=== PATIENT | female | born 1965 | race Caucasian/White ===

== ENCOUNTER 2019-10-24 08:53 | Emergency (ER) | payer BC ==
[2019-10-24] MEDS ORDERED: PROMETHAZINE 25 MG/ML VIAL ONE (09:17)
[2019-10-24] MEDS ORDERED: NA CHLORIDE 0.9% 1,000 ML ONE ×2 (09:17→11:25)
[2019-10-24] MEDS ORDERED: PANTOPRAZOLE 40 MG INJ ONE (09:17)
[2019-10-24 09:28] LABS: Absolute Lymphocytes (CBC) 1.2 K/uL (0.7-4.9); Basophils % 0.4 % (0-1.3); Hematocrit 45.4 % (36.0-45.0); Lymphocytes % 16.6 % (15.3-44.8); MPV 8.2 fL (7.6-11.3); RBC Red Blood Cell Count 4.76 M/uL (3.86-4.86)
[2019-10-24 09:40] LABS: Albumin 3.8 g/dL (3.4-5.0); Bilirubin Direct 0.2 mg/dL (0-0.2); Bilirubin Total 0.7 mg/dL (0.2-1.0); Potassium 4.1 mmol/L (3.5-5.1)
[2019-10-24 11:54] LABS: Urine Bacteria <20 /HPF (<20); Urine Culture Reflex Order NOT NEEDED; Urine RBC <5 /HPF (NONE SEEN)
--- NOTE | 2019-10-24 12:10 | ER ---
Nurse's Notes [facility] Name: Gala Chawla Age: 54 yrs Sex: Female : 1965 Arrival Date: 10/24/2019 Time: 08:55 Bed 13 Private MD: Diagnosis: Diarrhea, unspecified Presentation: 10/24 09:00 Presenting complaint: Patient states: Diarrhea x 3 days. Pt reports she is having 2-3 ss watery BMs/ hour. Transition of care: patient was not received from another setting of care. Onset of symptoms was October 20, 2019. Risk Assessment: Do you want to hurt yourself or someone else? Patient reports no desire to harm self or others. Initial Sepsis Screen: Does the patient have a suspected source of infection? No. Patient's initial sepsis screen is negative. Care prior to arrival: None. 09:00 Method Of Arrival: Ambulatory ss 09:00 Acuity: BEATA 3 ss 09:00 Initial Sepsis Screen: Does the patient meet any 2 criteria? No. Patient's initial rb1 sepsis screen is negative. Historical: - Allergies: 09:00 No Known Allergies; rb1 - Home Meds: 09:00 Projesterone [Active]; rb1 - PMHx: 09:00 hormone replacement; rb1 - PSHx: 09:00 None; rb1 - Immunization history:: Adult Immunizations up to date. - Social history:: Smoking status: Patient/guardian denies using tobacco. - Ebola Screening: : Patient denies exposure to infectious person Patient denies travel to an Ebola-affected area in the 21 days before illness onset. Screenin:00 Abuse screen: Denies threats or abuse. Nutritional screening: Has had N/V for 3 or more rb1 days. Tuberculosis screening: No symptoms or risk factors identified. Fall Risk None identified. Assessment: 09:00 General: Appears uncomfortable, Behavior is calm, cooperative, Denies fever. Pain: rb1 Complains of pain in right lower quadrant and left lower quadrant Pain currently is 6 out of 10 on a pain scale. Neuro: Level of Consciousness is awake, alert, obeys commands, Oriented to person, place, time, situation. 09:00 Cardiovascular: Capillary refill < 3 seconds is brisk in bilateral fingers. rb1 Respiratory: Airway is patent Respiratory effort is even, unlabored, Respiratory pattern is regular, symmetrical. GI: Reports diarrhea, nausea, vomiting, since x 3 days. : No signs and/or symptoms were reported regarding the genitourinary system. Derm: Skin is pink, warm \T\ dry. 10:00 Reassessment: Patient appears in no apparent distress at this time. No changes from rb1 previously documented assessment. 11:00 Reassessment: Patient appears in no apparent distress at this time. Patient and/or ca1 family updated on plan of care and expected duration. Pain level reassessed. Patient is alert, oriented x 3, equal unlabored respirations, skin warm/dry/pink. Patient states feeling better. 12:23 Reassessment: Patient appears in no apparent distress at this time. Patient is alert, ca1 oriented x 3, equal unlabored respirations, skin warm/dry/pink. Patient is alert/active/playful, equal unlabored respirations, skin warm/dry/pink. Pending completion of fluids. To be discharged once done. Vital Signs: 09:00 BP 122 / 80; Pulse 88; Resp 17; Temp 97.8(O); Pulse Ox 100% ; Weight 56.7 kg (R); rb1 Height 5 ft. 5 in. (165.10 cm); Pain 6/10; 10:00 BP 112 / 77; Pulse 78; Resp 16; Pulse Ox 100% on R/A; rb1 11:33 BP 153 / 73; Pulse 70; Resp 17; Temp 98.9(TE); Pulse Ox 97% on R/A; mh5 12:23 BP 114 / 75; Pulse 79; Resp 17 S; Pulse Ox 100% ; ca1 09:00 Body Mass Index 20.80 (56.70 kg, 165.10 cm) [facility] ED Course: 08:55 Patient arrived in ED. as 08:56 Elle Cadena FNP-C is PHCP. snw 08:56 Darrian Devi MD is Attending Physician. snw 08:56 Kell Juan, PRINCESS is Primary Nurse. rb1 09:00 Arm band placed on left wrist. ss 09:00 Patient has correct armband on for positive identification. Bed in low position. Call rb1 light in reach. Side rails up X 1. Pulse ox on. NIBP on. 09:11 Triage completed. ss 09:20 Initial lab(s) drawn, by me, sent to lab. Inserted saline lock: 20 gauge in right 5 antecubital area, using aseptic technique. Blood collected. 09:21 Adult w/ patient. Warm blanket given. [facility] 09:21 Basic Metabolic Panel Sent. 5 09:21 CBC with Diff Sent. 5 09:22 Creatinine for Radiology Sent. 5 09:22 Hepatic Function Sent. 5 09:[address] [facility] 09:54 Inserted saline lock: 22 gauge in left antecubital area, using aseptic technique. rb1 09:55 IV discontinued, intact, bleeding controlled, No redness/swelling at site. Pressure rb1 dressing applied, 20 G R AC. 10:04 Urine Culture Sent. 5 10:04 Urine Microscopic Only Sent. 5 12:58 IV discontinued, intact, bleeding controlled, No redness/swelling at site. Pressure ca1 dressing applied. 12:59 No provider procedures requiring assistance completed. ca1 Administered Medications: 09:25 Drug: NS 0.9% 1000 ml Route: IV; Rate: 1 bolus; Site: right antecubital; rb1 11:27 Follow up: Response: No adverse reaction; IV Intake: 1000ml ca1 09:25 Drug: Phenergan 6.25 mg Route: IVP; Site: right antecubital; rb1 11:27 Follow up: Response: No adverse reaction; Pain is decreased ca1 09:25 Drug: ProTONIX 40 mg Route: IVP; Site: right antecubital; rb1 11:27 Follow up: Response: No adverse reaction; Nausea is decreased ca1 11:25 Drug: NS 0.9% 1000 ml Route: IV; Rate: 1 bolus; Site: left antecubital; ca1 12:59 Follow up: Response: No adverse reaction; IV Status: Completed infusion; IV Intake: ca1 1000ml 12:22 Drug: Cipro 500 mg Route: PO; ca1 13:00 Follow up: Response: No adverse reaction ca1 Intake: 11:27 IV: 1000ml; Total: 1000ml. ca1 12:59 IV: 1000ml; Total: 2000ml. ca1 Outcome: 12:09 Discharge ordered by . darío 12:58 Discharged to home ambulatory, with significant other. ca1 12:58 Condition: stable 12:58 Discharge instructions given to patient, Instructed on discharge instructions, follow up and referral plans. medication usage, Demonstrated understanding of instructions, follow-up care, medications, Prescriptions given X 2. 13:00 Patient left the ED. ca1 Signatures: Elle Cadena, SUPREME COURT JUSTICE-C SUPREME COURT JUSTICE-Csnw Maribel James Shelby RN RN Kell Juan RN RN rb1 Sol James [facility] Narda Vital RN RN ca1 Corrections: (The following items were deleted from the chart) 09:13 09:00 GI: Reports diarrhea, nausea, since x 3 days rb1 rb1
--- NOTE | 2019-10-24 12:10 | EDPHYS ---
Physician Documentation [facility] Name: Gala Chawla Age: 54 yrs Sex: Female : 1965 Arrival Date: 10/24/2019 Time: 08:55 Bed 13 Private MD: ED Physician Darrian Devi HPI: 10/24 12:07 This 54 yrs old Female presents to ER via Ambulatory with complaints of snw Diarrhea, Weakness. 12:07 The patient presents to the emergency department with diarrhea, that is continuous. snw Onset: The symptoms/episode began/occurred 4 day(s) ago, and became persistent. Possible causes: unknown. The symptoms are aggravated by movement, food . Associated signs and symptoms: Pertinent positives: abdominal pain, Pertinent negatives: GI bleeding. Severity of symptoms: At their worst the symptoms were moderate in the emergency department the symptoms are unchanged. The patient has not experienced similar symptoms in the past. It is unknown whether or not the patient has recently seen a physician. from [place]. Historical: - Allergies: 09:00 No Known Allergies; rb1 - Home Meds: 09:00 Projesterone [Active]; rb1 - PMHx: 09:00 hormone replacement; rb1 - PSHx: 09:00 None; rb1 - Immunization history:: Adult Immunizations up to date. - Social history:: Smoking status: Patient/guardian denies using tobacco. - Ebola Screening: : Patient denies exposure to infectious person Patient denies travel to an Ebola-affected area in the 21 days before illness onset. ROS: 09:23 Constitutional: Negative for fever, chills, and weight loss, Eyes: Negative for injury, snw pain, redness, and discharge, ENT: Negative for injury, pain, and discharge, Neck: Negative for injury, pain, and swelling, Cardiovascular: Negative for chest pain, palpitations, and edema, Respiratory: Negative for shortness of breath, cough, wheezing, and pleuritic chest pain, Back: Negative for injury and pain, : Negative for injury, bleeding, discharge, and swelling, MS/Extremity: Negative for injury and deformity, Skin: Negative for injury, rash, and discoloration, Neuro: Negative for headache, weakness, numbness, tingling, and seizure, Psych: Negative for depression, anxiety, suicide ideation, homicidal ideation, and hallucinations. 09:23 Abdomen/GI: Positive for nausea, diarrhea. Exam: 09:21 Constitutional: This is a well developed, well nourished patient who is awake, alert, snw and in no acute distress. Head/Face: Normocephalic, atraumatic. Eyes: Pupils equal round and reactive to light, extra-ocular motions intact. Lids and lashes normal. Conjunctiva and sclera are non-icteric and not injected. Cornea within normal limits. Periorbital areas with no swelling, redness, or edema. ENT: Nares patent. No nasal discharge, no septal abnormalities noted. Tympanic membranes are normal and external auditory canals are clear. Oropharynx with no redness, swelling, or masses, exudates, or evidence of obstruction, uvula midline. Mucous membranes moist. Neck: Trachea midline, no thyromegaly or masses palpated, and no cervical lymphadenopathy. Supple, full range of motion without nuchal rigidity, or vertebral point tenderness. No Meningismus. Chest/axilla: Normal chest wall appearance and motion. Nontender with no deformity. No lesions are appreciated. Cardiovascular: Regular rate and rhythm with a normal S1 and S2. No gallops, murmurs, or rubs. Normal PMI, no JVD. No pulse deficits. Respiratory: Lungs have equal breath sounds bilaterally, clear to auscultation and percussion. No rales, rhonchi or wheezes noted. No increased work of breathing, no retractions or nasal flaring. Back: No spinal tenderness. No costovertebral tenderness. Full range of motion. Skin: Warm, dry with normal turgor. Normal color with no rashes, no lesions, and no evidence of cellulitis. MS/ Extremity: Pulses equal, no cyanosis. Neurovascular intact. Full, normal range of motion. Neuro: Awake and alert, GCS 15, oriented to person, place, time, and situation. Cranial nerves II-XII grossly intact. Motor strength 5/5 in all extremities. Sensory grossly intact. Cerebellar exam normal. Normal gait. 09:21 Abdomen/GI: Inspection: abdomen appears normal, Bowel sounds: hyperactive, Palpation: mild abdominal tenderness, in the right lower quadrant and left lower quadrant. 09:21 Psych: Behavior/mood is anxious, Affect is animated, Judgement / Insight is normal. Vital Signs: 09:00 BP 122 / 80; Pulse 88; Resp 17; Temp 97.8(O); Pulse Ox 100% ; Weight 56.7 kg (R); rb1 Height 5 ft. 5 in. (165.10 cm); Pain 6/10; 10:00 BP 112 / 77; Pulse 78; Resp 16; Pulse Ox 100% on R/A; rb1 11:33 BP 153 / 73; Pulse 70; Resp 17; Temp 98.9(TE); Pulse Ox 97% on R/A; mh5 12:23 BP 114 / 75; Pulse 79; Resp 17 S; Pulse Ox 100% ; ca1 09:00 Body Mass Index 20.80 (56.70 kg, 165.10 cm) rb1 MDM: 08:56 Patient medically screened. snw 12:08 Data reviewed: vital signs, nurses notes. Data interpreted: Pulse oximetry: on room air snw is 97 %. Interpretation: normal. Counseling: I had a detailed discussion with the patient and/or guardian regarding: the historical points, exam findings, and any diagnostic results supporting the discharge/admit diagnosis, lab results, the need for outpatient follow up, to return to the emergency department if symptoms worsen or persist or if there are any questions or concerns that arise at home. Response to treatment: the patient's symptoms have markedly improved after treatment. Special discussion: Based on the patient's Hx, exam, and Dx evaluation, there is no indication for emergent surgery or inpatient Tx. It is understood by the patient/guardian that if the Sx's persist or worsen they need to return immediately for re-evaluation. Based on the history and exam findings, there is no indication for further emergent testing or inpatient evaluation. I discussed with the patient/guardian the need to see the primary care provider for further evaluation of the symptoms. 10/24 09:05 Order name: Basic Metabolic Panel; Complete Time: 09:44 snw 10/24 09:05 Order name: CBC with Diff; Complete Time: 09:36 snw 10/24 09:05 Order name: Creatinine for Radiology; Complete Time: 09:40 snw 12 09:05 Order name: Hepatic Function; Complete Time: 09:44 snw 12 09:05 Order name: Lipase; Complete Time: 09:44 snw 12 09:05 Order name: Stool Culture snw 10/24 09:05 Order name: Occult Blood snw 12/19 09:05 Order name: Fecal Leukocyte Stain [facility] 10/24 09:05 Order name: Urine Culture [facility] 10/24 09:05 Order name: Urine Microscopic Only; Complete Time: 11:57 [facility] 10/24 11:07 Order name: Urine Dipstick--Ancillary (enter results) 10/24 11:07 Order name: Urine --Ancillary (enter results) 10/24 09:05 Order name: IV Saline Lock; Complete Time: 09:22 snw 10/24 09:05 Order name: Labs collected and sent; Complete Time: : snw 10/24 09:05 Order name: Urine Dipstick-Ancillary (obtain specimen); Complete Time: 10:04 snw Administered Medications: 09:25 Drug: NS 0.9% 1000 ml Route: IV; Rate: 1 bolus; Site: right antecubital; rb1 11:27 Follow up: Response: No adverse reaction; IV Intake: 1000ml ca1 09:25 Drug: Phenergan 6.25 mg Route: IVP; Site: right antecubital; rb1 11:27 Follow up: Response: No adverse reaction; Pain is decreased ca1 09:25 Drug: ProTONIX 40 mg Route: IVP; Site: right antecubital; rb1 11:27 Follow up: Response: No adverse reaction; Nausea is decreased ca1 11:25 Drug: NS 0.9% 1000 ml Route: IV; Rate: 1 bolus; Site: left antecubital; ca1 12:59 Follow up: Response: No adverse reaction; IV Status: Completed infusion; IV Intake: ca1 1000ml 12:22 Drug: Cipro 500 mg Route: PO; ca1 13:00 Follow up: Response: No adverse reaction ca1 Disposition: 16:25 Co-signature as Attending Physician, Darrian Devi MD. rn Disposition: 10/24/19 12:09 Discharged to Home. Impression: Diarrhea, unspecified. - Condition is Stable. - Discharge Instructions: Food Choices to Help Relieve Diarrhea, Adult, Diarrhea, Adult, Rehydration, Adult, Colitis. - Prescriptions for Bentyl 20 mg Oral Tablet - take 2 tablet by ORAL route every 6 hours As needed; 40 tablet. Cipro 500 mg Oral Tablet - take 1 tablet by ORAL route every 12 hours for 10 days; 20 tablet. - Medication Reconciliation Form, Thank You Letter, Antibiotic Education, Prescription Opioid Use form. - Follow up: Emergency Department; When: As needed; Reason: Worsening of condition. Follow up: Private Physician; When: 2 - 3 days; Reason: Recheck today's complaints, Continuance of care. Signatures: Dispatcher [employer] EDElle Comer, DAT INSTRUCTOR-C DAT INSTRUCTOR-Csnw Darrian Devi MD MD rn Smirch, Shelby, RN RN Kell Juan RN RN [facility] Narda Vital RN RN ca1 Corrections: (The following items were deleted from the chart) 13:00 12:09 10/24/2019 12:09 Discharged to Home. Impression: Diarrhea, unspecified. Condition ca1 is Stable. Forms are Medication Reconciliation Form, Thank You Letter, Antibiotic Education, Prescription Opioid Use. Follow up: Emergency Department; When: As needed; Reason: Worsening of condition. Follow up: Private Physician; When: 2 - 3 days; Reason: Recheck today's complaints, Continuance of care. snw
[2019-10-24] MEDS ORDERED: CIPROFLOXACIN HCL 500 MG TAB ONE (12:23)
[2019-10-24 13:09] LABS: Urine Blood TRACE (NEG); Urine Glucose NEGATIVE (NEG); Urine Protein NEGATIVE (NEG)
[2019-10-24 15:59] VITALS: TEMP 98.9
[2019-10-24 16:01] VITALS: BP 114/75; O2SAT 100
== END 2019-10-24 13:00 | disposition home or self-care (01) ==
LOC: ER 08:53
DX: R19.7 Diarrhea, unspecified (principal); R11.0 Nausea
CPT/HCPCS: 96361; 87045; 85025; 87086; 80048; 36415; 89055; 82274; 81025; 80076; 87046; 83690; 96375; 96374; 99284; J2550; C9113; J7030 ×2; 81003; 81015; 87088